=== PATIENT | female | born 1965 | race African-American/Black ===

== ENCOUNTER → 2018-10-11 | Outpatient (CLI) | payer BC ==
[~2018-10-11] MED LIST: ALLEGRA180 MG PO; ESTRADIOL1 EAC1 TOP; MULTIVITAMINS1 EAC7 PO; NASACORT; PANTOPRAZOLE SO40 MG PO; SYNTHROID100 MCG PO; VIT PO; VITAMIN D35000 UNIT PO
--- NOTE | 2018-10-19 08:25 | Diagnostic Imaging Report ---
#[id number] - MGSCRBIL #BILATERAL DIGITAL SCREENING MAMMOGRAM WITH CAD: 10/11/2018 CLINICAL: Routine screening. Comparison is made to exam dated: 08/22/2013 mammogram - [facility]. Current study contains 5 films. There are scattered fibroglandular elements in both breasts. Current study was also evaluated with a Computer Aided Detection (CAD) system. There are benign calcifications in both breasts. There also are benign intramammary nodes in both breasts. No significant masses, calcifications, or other findings are seen in either breast. There has been no significant interval change. IMPRESSION: BENIGN There is no mammographic evidence of malignancy. A 1 year screening mammogram is recommended. The patient will be notified by letter of the results. Nile martines/bess:10/18/2018 14:37:54 Electronics Utility Worker: Sylwia BROWRE(Jihan)(M), [facility] letter sent: Compared to Prior B9 Mammogram BI-RADS: 2 Benign
== END ==
LOC: MAMMO 14:45
PROVIDERS: ATTEND Family Medicine
DX: Z12.31 Encounter for screening mammogram for malignant neoplasm of breast (principal)
CPT/HCPCS: 77067

== ENCOUNTER → 2018-10-26 | Day surgery (SDC) | payer BC ==
[~2018-10-26] MED LIST changes: +BUPIVACAINE HCL 0.5% 10ML MPF VIAL INJ ONE; +CEFAZOLIN SOD 1 GM/D5W 50ML 50 ML IV ONE; +DEXAMETHASONE SOD PHOS INJ 4 MG/ML VIAL ONE; +FENTANYL CITRATE/PF 100MCG/2 ML INJ ONE; +LIDOCAINE HCL 2% LOCAL INJ 5 ML SDV VIAL INJ ONE; +MUPIROCIN 2% OINT 22 GM TUBE ONE; +ONDANSETRON HCL INJ 2 MG/ML VIAL ONE; +PROPOFOL IV EMULSION 10 MG/ML 20 ML VIAL ONE; +SEVOFLURANE INHAL SOLN 250 ML PEN BTL ONE; +TRAMADOL HCL 50 MG TAB ONE
--- OUTSIDE RECORDS SUMMARY | 2018-10-26 05:17 | XMS REPORT ---
Author Author [facility] Address Unknown Phone Unavailable Care Team Providers Care Scale Clerk Name Role Phone SONYA HOLCOMB Unavailable Unavailable Problems This patient has no known problems. Allergies, Adverse Reactions, Alerts This patient has no known allergies or adverse reactions. Medications This patient has no known medications. Results Test Description Test Time Test Comments Text Results Atomic Results Result Comments MAMMOGRAPHY DIGITAL SCR BILAT 2018-10-11 15:52:00 [place] [address] Patient Name: JOSEFA CHEW MR #: [id number] : 1965 Age/Sex: 53/F Req #: [id number] [facility] Physician: Ordered by: SONYA HOLCOMB MD Report #: [id number] Location: MAMMO Room/Bed: Procedure: [id number] MG/MAMMOGRAPHY DIGITAL SCR BILAT Exam Date: 10/11/18 Exam Time: 1450 REPORT STATUS: Signed #[id number] - MGSCRBIL #BILATERAL DIGITAL SCREENING MAMMOGRAM WITH CAD: 10/11/2018 CLINICAL: Routine screening. Comparison is made to exam dated: 08/22/2013 mammogram - [facility]. Current study contains 5 films. There are scattered fibroglandular elements in both breasts. Current study was also evaluated with a Computer Aided Detection (CAD) system. There are benign calcifications in both breasts. There also are benign intramammary nodes in both breasts. No significant masses, calcifications, or other findings are seen in either breast. There has been no significant interval change. IMPRESSION: BENIGN There is no mammographic evidence of malignancy. A 1 year screening mammogram is recommended. The patient will be notified by letter of the results. Holger martines/vasyl:10/18/2018 14:37:54 Apprentice Painter Brush: Sylwia BROWER(R)(M), [facility] letter sent: Compared to Prior B9 Mammogram BI-RADS: 2 Benign Dictated By: HOLGER EVANS DO 1437 Transcribed By: VASYL on 10/18/18 1437 COPY TO: SONYA HOLCOMB MD
--- OUTSIDE RECORDS SUMMARY | 2018-10-26 05:17 | XMS REPORT | Clinical Summary ---
Author Author [facility] Address Unknown Phone Unavailable Care Team Providers Care Media Operator Name Role Phone Brooks Wheat MD PCP Allergies Comments Active Allergy Reactions Severity Noted Date Hydrocodone 03/20/2018 Ibuprofen 03/20/2018 Medications End Date Status Medication Sig Dispensed Refills Start Date Active levothyroxine sodium Take by 0 (SYNTHROID ORAL) mouth. 03/27/2018 polymyxin B Administer 1 1 Bottle 0 sulf-trimethoprim drop into the 8 (POLYTRIM) 10,000 unit- 1 left eye 4 mg/mL drops (four) times a day for 7 days. Active Problems Not on file Encounters Care Team Description Date Type Specialty Gabriel Benjamin Jr., MD Subconjunctival hemorrhage of left eye (Primary Dx) 03/20/2018 Emergency Emergency Medicine after 10/25/2017 Social History Date Tobacco Use Types Packs/Day Years Used Never Smoker Smokeless Tobacco: Never Used Alcohol Use Drinks/Week oz/Week Comments No Sex Assigned at Date Recorded Not on file Industry Job Start Date Occupation Not on file Not on file Not on file Travel End Travel History Travel Start No recent travel history available. Last Filed Vital Signs Time Taken Vital Sign Reading 03/20/2018 2:38 PM CDT Blood Pressure 157/71 03/20/2018 2:38 PM CDT Pulse 76 03/20/2018 2:38 PM CDT Temperature 36.8 C (98.3 F) 03/20/2018 2:38 PM CDT Respiratory Rate 18 03/20/2018 2:38 PM CDT Oxygen Saturation 99% - Inhaled Oxygen - Concentration 03/20/2018 2:37 PM CDT Weight 83.9 kg (185 lb) 03/20/2018 2:37 PM CDT Height 152.4 cm (5') 03/20/2018 2:37 PM CDT Body Mass Index 36.13 Plan of Treatment Not on file Results Not on fileafter 10/25/2017 Insurance Payer Benefit Subscriber ID Type Phone Address Plan / Group BCBS BCBS xxxxxxxxxxxx PPO CHOICE PPO/[employer] PPO Advance Directives Patient has advance care planning documents on file. For more information, julio e contact: Vladimir Queen [address] [place] [address]
[2018-10-26 08:30] VITALS: BP 124/74
--- NOTE | 2018-10-26 13:29 | Operative Report ---
DATE OF PROCEDURE: October 26, 2018 PREOPERATIVE DIAGNOSIS: Stenosing tenosynovitis of right index finger. POSTOPERATIVE DIAGNOSIS: Stenosing tenosynovitis of right index finger. OPERATION PERFORMED: Tenovaginotomy of right index finger. ANESTHESIA: General. HISTORY: The patient is a 53-year-old right hand-dominant female who presents with stenosing tenosynovitis of the right index finger that is recalcitrant to conservative treatment. The risks, benefits, and alternatives of treatment were discussed with the patient and she is prepared to undergo the procedure as outlined. DESCRIPTION OF PROCEDURE: The patient was brought to the operating theater. After the induction of adequate general/regional anesthesia, the patient was prepped and draped in a supine position. A time out was performed by the entire operating room team. An oblique incision was marked out over the A1 radha of the right index finger. The upper extremity was exsanguinated, and a tourniquet was inflated to a pressure of 250 mmHg. The incision was made through the skin and subcutaneous tissues. All venous tributaries were controlled with bipolar cautery. The incision was deepened through the palmar tissues. The neurovascular bundles on the radial and ulnar sides of the flexor tendon sheath were identified and retracted away from the flexor tendon sheath and preserved. The A1 radha of the affected finger was identified and incised longitudinally, taking care to protect and preserve the flexor tendons within the sheath. After the complete length of the radha had been transected, the tendons were placed in a range of motion. There was noted to be good motion without any locking. The wound was then copiously irrigated with bacteriostatic saline and closed with 5-0 nylon in an interrupted horizontal mattress fashion. A Marcaine field block was performed at the operative site. The tourniquet was deflated. All the fingers pinked up nicely. A sterile bulky conforming bandage was applied to the hand, and the patient was returned to the recovery room in satisfactory condition and was discharged with a postoperative instruction sheet as well as a followup appointment. Job#: [id number] KIP
== END | disposition home or self-care (01) ==
LOC: OR 05:14
PROVIDERS: ATTEND Plastic Surgery
DX: M65.321 Trigger finger, right index finger (principal); K21.9 Gastro-esophageal reflux disease without esophagitis; E07.9 Disorder of thyroid, unspecified; Z88.6 Allergy status to analgesic agent; Z88.8 Allergy status to other drugs, medicaments and biological substances; Z01.810 Encounter for preprocedural cardiovascular examination
CPT/HCPCS: 26055; 93005; J0690; J1100; J2001; J2405; J2704

== ENCOUNTER → 2021-10-07 | Outpatient (CLI) | payer BC ==
[~2021-10-07] MED LIST changes: -BUPIVACAINE HCL 0.5% 10ML MPF VIAL INJ ONE; -CEFAZOLIN SOD 1 GM/D5W 50ML 50 ML IV ONE; -DEXAMETHASONE SOD PHOS INJ 4 MG/ML VIAL ONE; -FENTANYL CITRATE/PF 100MCG/2 ML INJ ONE; -LIDOCAINE HCL 2% LOCAL INJ 5 ML SDV VIAL INJ ONE; -MUPIROCIN 2% OINT 22 GM TUBE ONE; -ONDANSETRON HCL INJ 2 MG/ML VIAL ONE; -PROPOFOL IV EMULSION 10 MG/ML 20 ML VIAL ONE; -SEVOFLURANE INHAL SOLN 250 ML PEN BTL ONE; -TRAMADOL HCL 50 MG TAB ONE
== END ==
LOC: MAMMO 15:13
DX: Z12.31 Encounter for screening mammogram for malignant neoplasm of breast (principal); M89.9 Disorder of bone, unspecified
CPT/HCPCS: 77067; 77080

== ENCOUNTER → 2024-10-12 | Day surgery (SDC) | payer BC ==
[~2024-10-12] MED LIST changes: +ASCORBIC ACID500 MG PO; +ASPIRIN81 MG PO; +B COMPLEX1 EACH PO; +CEPHALEXIN500 MG PO; +ESTRADIOL PATCH TOP; +FENTANYL CITRATE/PF 100MCG/2 ML INJ ONE; +LACTATED RINGER'S 1,000 ML ONE; +LEVSIN0.125 MG PO; +LIDOCAINE HCL 2% LOCAL INJ 5 ML SDV VIAL INJ ONE; +MAGNESIUM PO; +METFORMIN PO; +METOCLOPRAMIDE HCL 10 MG/2ML VIAL ONE; +MIDAZOLAM HCL 2 MG/2 ML VIAL ONE; +PROPOFOL IV EMULSION 10 MG/ML 20 ML VIAL ONE; +PROPOFOL IV EMULSION 50 ML IV ONE; +REPATHA SU140 MG/1 M SQ; +ULTRACET PO; +ULTRAM 50MG50 MG PO
[2024-10-12 16:23] VITALS: TEMP 97.1
[2024-10-12 17:05] VITALS: BP 148/89; PULSE 85; RESP 16; O2SAT 100
== END | disposition home or self-care (01) ==
LOC: OR 13:47
PROVIDERS: ATTEND Internal Medicine Gastroenterology
DX: K20.90 Esophagitis, unspecified without bleeding (principal); Z12.11 Encounter for screening for malignant neoplasm of colon; K29.50 Unspecified chronic gastritis without bleeding; K31.89 Other diseases of stomach and duodenum; K63.5 Polyp of colon; K64.8 Other hemorrhoids; E78.5 Hyperlipidemia, unspecified; E03.9 Hypothyroidism, unspecified; E11.42 Type 2 diabetes mellitus with diabetic polyneuropathy; Z79.84 Long term (current) use of oral hypoglycemic drugs; D64.9 Anemia, unspecified; Z71.3 Dietary counseling and surveillance; Z68.31 Body mass index [BMI] 31.0-31.9, adult; Z79.899 Other long term (current) drug therapy
CPT/HCPCS: 43239; 43450; 45385; J2003; J2250; J2470; J2704 ×2; J2765; J3010; J7121; 45378

== ENCOUNTER → 2025-07-26 | Outpatient (REF) | payer BC ==
[~2025-07-26] MED LIST changes: -FENTANYL CITRATE/PF 100MCG/2 ML INJ ONE; -LACTATED RINGER'S 1,000 ML ONE; -LIDOCAINE HCL 2% LOCAL INJ 5 ML SDV VIAL INJ ONE; -METOCLOPRAMIDE HCL 10 MG/2ML VIAL ONE; -MIDAZOLAM HCL 2 MG/2 ML VIAL ONE; -PROPOFOL IV EMULSION 10 MG/ML 20 ML VIAL ONE; -PROPOFOL IV EMULSION 50 ML IV ONE
== END ==
LOC: MAMMO 12:55
PROVIDERS: ATTEND Internal Medicine
DX: Z12.31 Encounter for screening mammogram for malignant neoplasm of breast (principal)
CPT/HCPCS: 77067